=== PATIENT | female | born 1960 | race Caucasian/White ===

== ENCOUNTER 2020-04-26 07:29 | Day surgery (SDC) | payer OTHER, SELFPAY ==
[~2020-04-26] VITALS: Ht 157.5 cm; Wt 90.7 kg
[2020-04-26] MEDS ORDERED: IOPAMIDOL 50 ML VIAL IV ONE (07:30)
[2020-04-26] MEDS ORDERED: methylPREDNISolone ACETATE 80 MG/ML IM ONE (07:30)
[2020-04-26] MEDS ORDERED: NS 50 ML BAG IV ONE (07:30)
[2020-04-26] MEDS ORDERED: LIDOCAINE 2%, 20 ML MDV INJ ONE (07:30)
[2020-04-26] MEDS ORDERED: MIDAZOLAM HCL 5 MG/5 ML VIAL ONE (08:40)
[2020-04-26] MEDS ORDERED: DIPHENHYDRAMINE INJ 50 MG/ML VIAL ONE (08:40)
[2020-04-26 10:20] VITALS: BP_SYST 154
== END 2020-04-26 11:00 | disposition home or self-care (01) ==
LOC: SDS 07:29 → SMU 07:31 → SDS 11:00
PROVIDERS: ATTEND Internal Medicine
DX: M51.16 Intervertebral disc disorders with radiculopathy, lumbar region (principal); I10 Essential (primary) hypertension; E78.5 Hyperlipidemia, unspecified; F32.9 Major depressive disorder, single episode, unspecified; Z98.84 Bariatric surgery status; G89.4 Chronic pain syndrome; Z79.899 Other long term (current) drug therapy; Z20.828 Contact with and (suspected) exposure to other viral communicable diseases
CPT/HCPCS: 62323; J1040; J1200; J2001; J2250; J7120; Q9967; U0003; 76000

== ENCOUNTER 2020-05-31 07:45 | Day surgery (SDC) | payer OTHER ==
[~2020-05-31] VITALS: Ht 157.5 cm; Wt 90.7 kg
[2020-05-31] MEDS ORDERED: MIDAZOLAM HCL 5 MG/5 ML VIAL ONE (08:54)
[2020-05-31] MEDS ORDERED: DIPHENHYDRAMINE INJ 50 MG/ML VIAL ONE (08:55)
[2020-05-31 10:43] VITALS: BP_SYST 157
== END 2020-05-31 11:29 | disposition home or self-care (01) ==
LOC: SDS 07:45 → SMU 07:47 → SDS 11:29
PROVIDERS: ATTEND Internal Medicine
DX: M51.16 Intervertebral disc disorders with radiculopathy, lumbar region (principal); I10 Essential (primary) hypertension; E78.5 Hyperlipidemia, unspecified; F32.9 Major depressive disorder, single episode, unspecified; G89.29 Other chronic pain; M79.10 Myalgia, unspecified site; Z98.84 Bariatric surgery status; Z98.890 Other specified postprocedural states; Z79.899 Other long term (current) drug therapy; Z20.828 Contact with and (suspected) exposure to other viral communicable diseases
CPT/HCPCS: 62323; J1200; J2250; U0003; 76000

== ENCOUNTER 2020-09-27 08:30 | Day surgery (SDC) | payer OTHER ==
[~2020-09-27] VITALS: Ht 157.5 cm; Wt 95.3 kg
[2020-09-27] MEDS ORDERED: MORPHINE 2 MG/ML INJ. SYRINGE ONE (11:11)
[2020-09-27 11:25] VITALS: BP_SYST 136
[2020-09-27] MEDS ORDERED: MIDAZOLAM HCL 5 MG/5 ML VIAL ONE (14:28)
[2020-09-27] MEDS ORDERED: DIPHENHYDRAMINE INJ 50 MG/ML VIAL ONE (14:28)
== END 2020-09-27 12:05 | disposition home or self-care (01) ==
LOC: SMU 08:30 → SDS 08:30
PROVIDERS: ATTEND Internal Medicine
DX: M51.16 Intervertebral disc disorders with radiculopathy, lumbar region (principal); I10 Essential (primary) hypertension; F32.9 Major depressive disorder, single episode, unspecified; E78.5 Hyperlipidemia, unspecified; G89.4 Chronic pain syndrome; Z88.8 Allergy status to other drugs, medicaments and biological substances; Z20.828 Contact with and (suspected) exposure to other viral communicable diseases; Z79.899 Other long term (current) drug therapy
CPT/HCPCS: 62323; J2270; U0003; 76000; J1200; J2250